=== PATIENT | female | born 1990 ===

== ENCOUNTER 2016-09-20 14:40 | Outpatient (CLI) | payer MEDICAID ==
--- NOTE | 2016-09-20 15:50 | Mammography Report ---
LEFT DIGITAL DIAGNOSTIC MAMMOGRAM with CAD and LEFT BREAST ULTRASOUND: 09/20/16 14:40:00 CLINICAL: 26 year-old with left breast pain. She describes no specific lump but does describe pain in the outer breast . COMPARISON:None. FINDINGS: The breast is heterogeneously dense, which may obscure small masses and limit the sensitivity of mammography.No mass, architectural distortion or suspicious calcifications. Ultrasound of the left breast (including all four quadrants and the retroareolar area) was performed and demonstrated a single benign cyst at 2 o'clock 7 cm from the nipple measuring 5 x 3 x 5 mm. No other cysts and no solid mass or suspicious shadowing. IMPRESSION: A single 5 mm benign cyst at 2 o'clock and otherwise negative left breast. BI-RADS CATEGORY: 2 - - Benign RECOMMENDATION: Clinical followup and routine mammographic screening based on ACS guidelines. ACR BI-RADS MAMMOGRAPHIC CODES: 0 = Needs additional imaging evaluation; 1 = Negative; 2 = Benign; 3 = Probably benign; 4 = Suspicious; 5 = Malignant; 6 = Known biopsy-proven malignancy COMMENT: 1. Dense breast tissue, i.e., adenosis, fibrocystic changes, etc., may obscure an underlying neoplasm. 2. Approximately 10% of cancers are not detected with mammography. 3. A negative mammography report should not delay biopsy if a clinically suspicious mass is present. COMMENT: Patient follow-up letters are generated by our [employer] application.
== END 2016-09-20 14:41 | disposition home or self-care (01) ==
LOC: SPVWC 14:40
PROVIDERS: ATTEND Advanced Practice Midwife
DX: N64.4 Mastodynia (principal); N60.02 Solitary cyst of left breast
CPT/HCPCS: 76641; G0206